=== PATIENT | male | born 1980 | race Caucasian/White ===

== ENCOUNTER 2019-04-30 09:56 | Outpatient (CLI) | payer OTHER ==
--- NOTE | 2019-04-30 10:50 | ULT ---
HEPATIC DOPPLER: HISTORY: Abnormal liver function test. COMPARISON: None. TECHNIQUE: Grayscale, color flow, Doppler imaging and spectral waveform analysis performed of the liver. FINDINGS: Pancreas is obscured by bowel gas. Hepatic parenchyma has a normal echotexture. No hepatic masses or intrahepatic biliary dilatation. Th e contour of the hepatic margin is maintained. Right hepatic lobe measures 12.9 cm. Spleen has a normal echotexture, measuring 9.9 cm in maximum dimension. No sonographic evidence of cholelithiasis, gallbladder wall thickening or pericholecystic fluid. Negative Licona's sign. Common bile duct diameter is 0.15 cm. Hepatic Doppler: There is patency and appropriate directional flow of the right portal vein, left por ricardo vein, main portal vein, hepatic artery, middle hepatic vein, left hepatic vein, right hepatic vein. There is patency and appropriate directional flow of the splenic vein and artery. IMPRESSION: 1. Normal hepatic Doppler. 2. Normal hepatic parenchymal echotexture. Transcribed Date/Time: 04/30/2019 11:45 AM
== END 2019-04-30 09:57 | disposition home or self-care (01) ==
LOC: ULT 09:56
PROVIDERS: ATTEND Internal Medicine Gastroenterology
DX: R94.5 Abnormal results of liver function studies (principal); R10.9 Unspecified abdominal pain; R19.7 Diarrhea, unspecified; L50.9 Urticaria, unspecified
CPT/HCPCS: 76705